=== PATIENT | female | born 1970 | race African-American/Black ===

== ENCOUNTER 2016-07-18 12:45 | Inpatient (IN) | payer OTHER ==
[2016-07-18 14:51] VITALS: BMI 19.8
--- NOTE | 2016-07-18 15:30 | HP ---
Admission [facility] Chief Complaint: REHAB TX FOR DRUG DEPENDENCE Allergies/Adverse Reactions: Allergies Allergy/AdvReac Type Severity Reaction Status Date / Time No Known Allergies Allergy Verified 07/18/16 15:04 History of Present Illness: 45 Y/O AA/FEMALE WITH A HX OF HEROIN AND COCAINE DEPENDENCE SEEKING REHAB TX. PT WAS D/C'D FROM [facility] TODAY AND REFERRED HERE FOR REHAB. Exam Limitations: No Limitations - Ebola screening Have you traveled outside of the country in the last 21 days: No Have you had contact with anyone from an Ebola affected area: No Have you been sick,other than usual withdrawal symptoms: No Do you have a fever: No - Review of Systems Constitutional: Chills, Night Sweats, Changes in sleep, Unintentional Wgt. Loss EENT: reports: Dental Problems (HX CAVITIES/TOOTH ACHES) Respiratory: reports: No Symptoms reported Cardiac: reports: Lightheadedness GI: reports: Diarrhea, Abdominal cramping (DUE TO STOMACH BUG) : reports: No Symptoms Reported Musculoskeletal: reports: Back Pain Integumentary: reports: Dryness Neuro: reports: Headache, Unsteady Gait Endocrine: reports: No Symptoms Reported Hematology: reports: Anemia (TAKING IRON PILL) Psychiatric: reports: Orientated x3 Other Systems: Reviewed and Negative Patient History - Patient Medical History Hx Anemia: Yes Hx Asthma: No Hx Chronic Obstructive Pulmonary Disease (COPD): No Hx Cardiac Disorders: No Hx Hypertension: No Hx Hypercholesterolemia: No HX Cerebrovascular Accident: No Hx Seizures: No Hx Diabetes: No Hx Gastrointestinal Disorders: Yes (ON FLAGYL/CIPRO TREATMENT;HOSPITALIZED X 3 DAYS([facility])) Hx Liver Disease: No Hx Genitourinary Disorders: No Hx Sexually Transmitted Disorders: No Hx Renal Disease (ESRD): No Hx Thyroid Disease: No Hx Human Immunodeficiency Virus (HIV): No Hx Hepatitis C: No Hx Depression: No Hx Suicide Attempt: No (DENIES) Hx Bipolar Disorder: No Hx Schizophrenia: No - Patient Surgical History Past Surgical History: Yes Hx Section: Yes ( ONCE IN 1990) Anesthesia Reaction: No - PPD History Previous Implant?: Yes (DONE AT [facility] Implanted On Prior [facility] Admission?: No Date: 06/14/16 (READ AT [facility] Results: NEGATIVE PPD to be Administered?: No - Reproductive History Patient is a Female of Child Bearing Age (11 -55 yrs old): Yes LMP comment: ONE YEAR AGO DUE TO DRUG USE Patient : No - Smoking Cessation Smoking history: Current every day smoker Have you smoked in the past 12 months: Yes Aproximately how many cigarettes per day: 20 Hx Chewing Tobacco Use: No Initiated information on smoking cessation: Yes 'Breaking Loose' booklet given: 07/18/16 - Substance & Tx. History Hx Alcohol Use: No (DENIES) Hx Substance Use: Yes (HEROIN/COCAINE) Substance Use Type: Cocaine, Heroin Hx Substance Use Treatment: Yes ([facility]) - Substances Abused Cocaine Route: Smoking Frequency: Daily Amount used: $50 Age of first use: 17 Date of Last Use: 07/09/16 Heroin Route: Inhalation Frequency: Daily Amount used: 1 BUNDLE Age of first use: 17 Date of Last Use: 07/09/16 Family Disease History - Family Disease History Family History: Denies Admission Physical Exam [facility] - Vital Signs Vital Signs: Vital Signs - 24 hr 07/18/16 14:48 Temperature 97.1 F L Pulse Rate 69 Respiratory 18 Rate Blood Pressure 152/80 - Physical General Appearance: Yes: No Apparent Distress, Thin, Anxious HEENTM: Yes: EOMI, Normocephalic, RENEE, Pharynx Normal Respiratory: Yes: Chest Non-Tender, Lungs Clear, Normal Breath Sounds, No Respiratory Distress Neck: Yes: Supple, Trachea in good position Breast: Yes: Breast Exam Deferred Cardiology: Yes: Regular Rhythm, Regular Rate, S1, S2 Abdominal: Yes: Normal Bowel Sounds, Non Tender, Flat, Soft Genitourinary: Yes: Other (N/C) Back: Yes: Within Normal Limits Musculoskeletal: Yes: full range of Motion, Gait Steady Extremities: Yes: Normal Range of Motion, Non-Tender Neurological: Yes: orthodontic assistant II-XII NML intact, Fully Oriented, Alert Integumentary: Yes: Dry, Warm, Rash (ITCHY DRY FEET) Lymphatic: Yes: Within Normal Limits - Diagnostic (1) Opioid dependence with withdrawal Current Visit: Yes Status: Chronic (2) Cocaine dependence, uncomplicated Current Visit: Yes Status: Chronic (3) Hx of acute gastritis Current Visit: Yes Status: Acute Comment: PT ON CIPRO AND METRONIDAZOLE TREATMENT. Cleared for Admission [facility] - Detox or Rehab Claeared for Rehab Admission: Yes [facility] Breath Alcohol Content Breath Alcohol Content: 0 Urine Pregancy Test - Result Urine Test Results: Negative- NO Line Present Urine Drug Screen - Results Urine Drug Screen Results: BZO-Benzodiazepines, MTD-Methadone
[2016-07-18] MEDS ORDERED: NICOTINE POLACRILEX 4 MG GUM BC PRN (15:58)
[2016-07-18] MEDS ORDERED: LOPERAMIDE HCL 2 MG CAPSULE PO PRN (15:58)
[2016-07-18] MEDS ORDERED: IBUPROFEN 400 MG TABLET (FP) PO PRN (15:58)
[2016-07-18] MEDS ORDERED: P-EPHED 60MG/TRIPROLIDI 2.5MG TABLET PO PRN (15:58)
[2016-07-18] MEDS ORDERED: MAGNESIUM CITRATE 300 ML BOTTLE PO PRN (15:58)
[2016-07-18] MEDS ORDERED: MENTHOL/PHENOL 1 EACH UD MM PRN (15:58)
[2016-07-18] MEDS ORDERED: MAG HYDROX/AL HYDROX/SIMETH 30 ML UNIT-DOSE CUP PO PRN (15:58)
[2016-07-18] MEDS ORDERED: MAGNESIUM HYDROX 2400MG/30ML ORAL SUSPENSION 30 ML CUP PO PRN (15:58)
[2016-07-18] MEDS ORDERED: diphenhydrAMINE HCL 50 MG CAPSULE PO PRN (15:58)
[2016-07-18] MEDS ORDERED: guaiFENesin/D-METHORPHAN HB 10 ML UNIT-DOSE CUPS PO PRN (15:58)
[2016-07-18] MEDS ORDERED: ACETAMINOPHEN 325 MG TABLET (FP) PO PRN (15:58)
[2016-07-18] MEDS ORDERED: PATIENT'S OWN MEDICATION (NON-FORMULARY) (Ciprofloxacin [Cipro -] 500 MG) PO SCH ×2 (16:00→18:00)
--- NOTE | 2016-07-18 17:27 | HP ---
Psychiatrist Admission - Data Date of interview: 07/18/16 Admission source: [facility] Identifying data: This is the first admission to [address] [place] [address] for this 46 years old AA female single mother of 3 grown children,supported herself working in [employer]. Medical History: Significant for Anemia,Acute Gastritis. Psychiatric History: denies Physical/Sexual Abuse/Trauma History: denies Vital Signs: Vital Signs - 24 hr 07/18/16 14:48 Temperature 97.1 F L Pulse Rate 69 Respiratory 18 Rate Blood Pressure 152/80 Allergies/Adverse Reactions: Allergies Allergy/AdvReac Type Severity Reaction Status Date / Time No Known Allergies Allergy Verified 07/19/16 13:45 Date of last physical exam: 07/18/16 Concur with the findings of this exam: Yes - Substance Abuse/Tx History Hx Alcohol Use: No Hx Substance Use: Yes (reports smoking crack since 17yo ,$50 daily,heroin since 17yo,1 bundle charles) Substance Use Type: Cocaine, Heroin Hx Substance Use Treatment: Yes (longest abstinence is 7 years ) - Admission Criteria Previous failed treatment: Yes Poor recovery environment: Yes Comorbidities: Yes Lacks judgement: Yes Mental Status Exam - Mental Status Exam Alert and Oriented to: Time, Place, Person Cognitive Function: Grossly Intact Patient Appearance: Well Groomed, Unkempt Mood: Sad Affect: Mood Congruent Patient Behavior: Cooperative Speech Pattern: Clear Voice Loudness: Normal Thought Process: Goal Oriented Thought Disorder: Not Present Hallucinations: Denies Suicidal Ideation: Denies Insight/Judgement: Fair Sleep: Fair Appetite: Fair, Weight loss Muscle strength/Tone: Normal Gait/Station: Normal Additional Comments: Patient looks older than her stated age. Psychiatric Findings - Problem List (Strum 1, 2,3) (1) Hx of acute gastritis Current Visit: Yes Status: Chronic Comment: PT ON CIPRO AND METRONIDAZOLE TREATMENT. (2) Cocaine dependence, uncomplicated Current Visit: Yes Status: Chronic (3) Opioid dependence with withdrawal Current Visit: Yes Status: Chronic - Initial Treatment Plan Initial Treatment Plan: Will monitor progress.
--- NOTE | 2016-07-18 20:18 | PN ---
S Progress Note Note: RECEIVED NURSE CALL PATIENT REPORTS HAS ALLERGIC REACTION TO CIPRO AND METRONIDAZOLE HOLD CIPRO AND METRONIDAZOLE FOR FURTHER CLARIFICATION CONTINUE REHAB
[2016-07-18] MEDS: THIAMINE HCL 100 MG TABLET (FP) PO SCH (21:45)
[2016-07-18] MEDS: TOLNAFTATE 1% CREAM 15 GM TUBE TP SCH (21:47)
[2016-07-18] MEDS: NICOTINE 21 MG/24 HOURS TOPICAL PATCH TD SCH (21:48)
[2016-07-18] MEDS ORDERED: PATIENT'S OWN MEDICATION (NON-FORMULARY) (Metronidazole [Flagyl -] 500 MG) PO SCH ×2 (22:00)
[2016-07-19 07:41] VITALS: TEMP 97.9
[2016-07-19] MEDS ORDERED: PT OWN MED DRAWER 7, Y5N ONE ×3 (08:50→16:25)
[2016-07-19 09:53] LABS: MCH 31.7 pg (25.7-33.7); MCHC 32.9 g/dl (32.0-36.0); MEAN CELL VOLUME 96.6 fl (80-96); MEAN PLT VOLUME 7.6 fl (7.5-11.1); PLATELET COUNT 318 K/MM3 (134-434); RDW 16.2 % (11.6-15.6); WHITE BLOOD COUNT 6.8 K/mm3 (4.0-10.0)
[2016-07-19] MEDS: NICOTINE 21 MG/24 HOURS TOPICAL PATCH TD SCH (10:17)
[2016-07-19] MEDS: TOLNAFTATE 1% CREAM 15 GM TUBE TP SCH ×2 (10:17→21:40)
[2016-07-19] MEDS: PRENATAL VITAMINS W/ FOLIC ACID TABLET (FP) PO SCH (10:17)
--- NOTE | 2016-07-19 10:46 | EKG ---
Test Reason : Blood Pressure : / mmHG Vent. Rate : 067 BPM Atrial Rate : 067 BPM P-R Int : 176 ms QRS Dur : 080 ms QT Int : 382 ms P-R-T Axes : 091 017 100 degrees QTc Int : 403 ms NORMAL SINUS RHYTHM POSSIBLE LEFT ATRIAL ENLARGEMENT SEPTAL INFARCT , AGE UNDETERMINED ABNORMAL ECG NO PREVIOUS ECGS AVAILABLE Confirmed by TIN HERNANDEZ, ADDIS ([id number]) on 07/19/2016 10:46:01 AM Referred By: Negin Morgan Confirmed By:ADDIS CASTLE MD
[2016-07-19 10:51] LABS: ALBUMIN 3.4 g/dl (3.4-5.0); ALK PHOS 153 U/L (45-117); ANION GAP 9 (8-16); BILIRUBIN,TOTAL 0.3 mg/dL (0.2-1.0); CALCIUM 8.8 mg/dL (8.5-10.1); CO2 28 mmol/L (21-32); CREATININE 0.9 mg/dL (0.55-1.02); GLUCOSE,RANDOM 101 mg/dL (74-106); SGOT/AST 28 U/L (15-37); SGPT/ALT 33 U/L (12-78); TOT PROT 6.5 g/dl (6.4-8.2)
[2016-07-19 12:02] LABS: SICKLE CELL SCREEN NEGATIVE (NEGATIVE)
[2016-07-19 12:30] LABS: HIV 1 & 2 AB NEGATIVE; HIV 1 AGp24 NEGATIVE
--- NOTE | 2016-07-19 13:54 | PN ---
S Progress Note Note: Pt. is not allergic to cipro or flagyl, she told the nurse that her thighs were swollen and the nurse and department chairperson assumed it was the cipro & flagyl she had been taking for almost a week. Pt. denies hx. of drug/food allergy. P : resume cipro & flagyl
[2016-07-19 13:58] LABS: URINE APPEARANCE SLCLOUDY; URINE BILIRUBIN NEGATIVE (NEGATIVE); URINE COLOR LTYELLOW; URINE GLUCOSE (UA) NEGATIVE (NEGATIVE); URINE KETONE NEGATIVE (NEGATIVE); URINE LEUK ESTERASE NEGATIVE (NEGATIVE); URINE NITRITE NEGATIVE (NEGATIVE); URINE PROTEIN NEGATIVE (NEGATIVE); URINE UROBILINOGEN NEGATIVE E.U./dl (0.2-1.0)
[2016-07-19] MEDS ORDERED: metroNIDAZOLE 250 MG TABLET PO SCH (14:00)
[2016-07-19 14:07] LABS: URINE BLOOD 1+ (NEGATIVE)
[2016-07-19 14:09] LABS: URINE BACTERIA RARE /hpf (NONE SEEN); URINE MUCUS RARE; URINE RBC 1 /hpf (0-3); URINE WBC <1 /hpf (3-5)
[2016-07-19] MEDS: PATIENT'S OWN MEDICATION (NON-FORMULARY) (Metronidazole [Flagyl -] 500 MG) PO SCH ×2 (15:40→21:40)
[2016-07-19] MEDS ORDERED: CIPROFLOXACIN 250 MG TABLET (RESTRICTED TO ID) PO SCH (18:00)
[2016-07-19] MEDS: PATIENT'S OWN MEDICATION (NON-FORMULARY) (Ciprofloxacin [Cipro -] 500 MG) PO SCH (18:44)
[2016-07-19] MEDS: THIAMINE HCL 100 MG TABLET (FP) PO SCH (21:40)
[2016-07-20] MEDS ORDERED: PT OWN MED DRAWER 7, Y5N ONE ×2 (03:42→08:40)
[2016-07-20] MEDS: PATIENT'S OWN MEDICATION (NON-FORMULARY) (Ciprofloxacin [Cipro -] 500 MG) PO SCH ×2 (06:17→18:30)
[2016-07-20] MEDS: PRENATAL VITAMINS W/ FOLIC ACID TABLET (FP) PO SCH (10:13)
[2016-07-20] MEDS: NICOTINE 21 MG/24 HOURS TOPICAL PATCH TD SCH (10:14)
[2016-07-20] MEDS: TOLNAFTATE 1% CREAM 15 GM TUBE TP SCH ×2 (10:14→21:32)
[2016-07-20] MEDS: PATIENT'S OWN MEDICATION (NON-FORMULARY) (Metronidazole [Flagyl -] 500 MG) PO SCH ×2 (11:33→21:31)
[2016-07-20] MEDS: THIAMINE HCL 100 MG TABLET (FP) PO SCH (21:31)
[2016-07-21] MEDS ORDERED: PT OWN MED DRAWER 7, Y5N ONE ×2 (03:22→08:21)
[2016-07-21 06:55] VITALS: BP 160/92; PULSE 60
[2016-07-21] MEDS: PATIENT'S OWN MEDICATION (NON-FORMULARY) (Ciprofloxacin [Cipro -] 500 MG) PO SCH (06:58)
[2016-07-21] MEDS: TOLNAFTATE 1% CREAM 15 GM TUBE TP SCH (09:24)
[2016-07-21] MEDS: PRENATAL VITAMINS W/ FOLIC ACID TABLET (FP) PO SCH (09:24)
[2016-07-21] MEDS: NICOTINE 21 MG/24 HOURS TOPICAL PATCH TD SCH (09:24)
[2016-07-21] MEDS: PATIENT'S OWN MEDICATION (NON-FORMULARY) (Metronidazole [Flagyl -] 500 MG) PO SCH (09:24)
--- NOTE | 2016-07-29 14:03 | PN ---
S Progress Note Note: Patient left AMA on 07/21/16 .See staff notes for details.
== END 2016-07-21 09:40 | disposition left against medical advice (07) | DRG 770 ==
LOC: YASAS 12:45 → Y3E 15:35
PROVIDERS: ADMIT Psychiatry & Neurology Psychiatry; ATTEND Psychiatry & Neurology Psychiatry
PROC: HZ42ZZZ Group Counseling for Substance Abuse Treatment, Cognitive-Behavioral (ICD-10-PCS; principal; 2016-07-21)
DX: F11.23 Opioid dependence with withdrawal (principal); F14.20 Cocaine dependence, uncomplicated; F17.210 Nicotine dependence, cigarettes, uncomplicated; K29.00 Acute gastritis without bleeding
CPT/HCPCS: 36415; 80053; 81003; 81015; 85027; 85660; 86593; 87389; 93005; 93010